=== PATIENT | female | born 1960 | race Caucasian/White ===

== ENCOUNTER → 2021-01-03 | Outpatient (CLI) | payer BC ==
[~2021-01-03] MED LIST: ASPI81CH PO; ATOR40TA PO; CARV3.125 PO; FISH OIL 1,2001 EAC1 PO; LOSA25 PO; MULTIPLE VITAM1 EACH PO; PROBIOTIC; TURMERIC
== END ==
LOC: LAB SHORT 07:40 → PLD 07:40
DX: Z86.19 Personal history of other infectious and parasitic diseases (principal); D26.0 Other benign neoplasm of cervix uteri
CPT/HCPCS: 88305

== ENCOUNTER 2021-02-07 09:40 | Day surgery (SDC) | payer BC ==
[~2021-02-07] VITALS: Ht 180.3 cm; Wt 84.6 kg
--- NOTE | 2021-02-07 10:35 | NUR ---
02/07/21 1035 Katie Cormier History, Chart, Medications and Allergies reviewed before start of procedure. Patient confirms NPO status and agrees with scheduled surgery. PATIENT DETERMINED TO BE ASA APPROPRIATE FOR PROPOFOL SEDATION PRIOR TO START OF PROCEDURE BY . 3-LEAD EKG REVIEWED WITH PHYSICIAN PRIOR TO START OF PROCEDURE. MONITOR INTACT WITH CONTINUOUS PULSE OXIMETRY AND INTERMITTENT BP.
--- NOTE | 2021-02-07 11:26 | NUR ---
Patient up to Ambulate independently. Gait steady. Discharge instructions reviewed with patient. Patient verbalizes understanding. Copy given to patient to take home.REVIEWED WITH VIA TELEPHONE PER PT REQUEST. Discharged via wheelchair to private car for ride home WITH
[2021-02-27 13:17] LABS: Performing Lab SYMBIODX; Test Name 88360 X2
== END 2021-02-07 11:28 | disposition home or self-care (01) ==
LOC: ORSCMMR 09:40 → ORD 10:30 → ORSCMMR 11:28
PROVIDERS: Internal Medicine Gastroenterology
PROC: 0DBK8ZX Excision of Ascending Colon, Via Natural or Artificial Opening Endoscopic, Diagnostic (ICD-10-PCS; principal; 2021-02-07 10:30)
PROC: 0DBN8ZX Excision of Sigmoid Colon, Via Natural or Artificial Opening Endoscopic, Diagnostic (ICD-10-PCS; principal; 2021-02-07 10:30)
PROC: 0DBL8ZX Excision of Transverse Colon, Via Natural or Artificial Opening Endoscopic, Diagnostic (ICD-10-PCS; principal; 2021-02-07 10:30)
DX: Z12.11 Encounter for screening for malignant neoplasm of colon (principal); Z80.0 Family history of malignant neoplasm of digestive organs; Z86.010 Personal history of colon polyps; D12.2 Benign neoplasm of ascending colon; D12.3 Benign neoplasm of transverse colon; K63.5 Polyp of colon; I25.10 Atherosclerotic heart disease of native coronary artery without angina pectoris; I25.2 Old myocardial infarction; Z79.82 Long term (current) use of aspirin; Z87.891 Personal history of nicotine dependence; Z79.899 Other long term (current) drug therapy
CPT/HCPCS: 88305; 88341; 88342; 88360; J2704; J7120

== ENCOUNTER 2021-02-14 13:23 | Day surgery (SDC) | payer BC ==
[~2021-02-14] VITALS: Ht 180.3 cm; Wt 83.7 kg
--- NOTE | 2021-02-14 16:51 | NUR ---
02/14/21 8431 WOLFGANG SAMPSON CALLED FOR XRAY TO VERIFY PLACEMENT. X-RAY TECH REPORTED THAT DR. CHI APPROVED PLACEMENT AND PATIENT IS OK TO DRINK.
== END 2021-02-14 16:45 | disposition home or self-care (01) ==
LOC: ORSCSDS 13:23
PROVIDERS: Surgery
PROC: B5131ZA Fluoroscopy of Right Jugular Veins using Low Osmolar Contrast, Guidance (ICD-10-PCS; principal; 2021-02-14 14:30)
PROC: 07BH3ZX Excision of Right Inguinal Lymphatic, Percutaneous Approach, Diagnostic (ICD-10-PCS; principal; 2021-02-14 14:30)
PROC: 05HM33Z Insertion of Infusion Device into Right Internal Jugular Vein, Percutaneous Approach (ICD-10-PCS; principal; 2021-02-14 14:30)
DX: C83.38 Diffuse large B-cell lymphoma, lymph nodes of multiple sites (principal); I10 Essential (primary) hypertension; I25.2 Old myocardial infarction; I25.10 Atherosclerotic heart disease of native coronary artery without angina pectoris; Z87.891 Personal history of nicotine dependence; Z79.82 Long term (current) use of aspirin
CPT/HCPCS: 77001; 88305; C1788; J0690; J1642; J2250; J2370; J2704; J3010; J7120